=== PATIENT | female | born 1960 | race Caucasian/White ===

== ENCOUNTER 2017-03-10 19:55 | Emergency (ER) | payer MEDICAID ==
--- NOTE | 2017-03-10 20:17 | Emergency Department Record ---
History of Present Illness - General Chief complaint: ENT Stated complaint: SORE THROAT Time Seen by Provider: 03/10/17 20:12 Source: Patient, Family Mode of Arrival: Ambulatory Limitations: No limitations - History of Present Illness Initial comments: 56 yo female has noted a changes in her sense of taste and then discomfort of the tongue and back of the throat. She looked in the mirror and noted a small amount of whitish covering in the back of the throat. No fever. NO swollen glands. She did have her tonsils removed as a child. No other symptoms. PCP is Dr Peña. No diabetes or steroid use. MD complaint: Sore throat Onset/Timin -: Week(s) Location: Throat Severity: Mild Quality: Other Consistency: Getting worse Improves with: None Worsens with: None - Related Data Home Medications Medication Instructions Recorded Confirmed Last Taken Morphine Sulfate [Morphine Sulfate 15 mg PO DAILY 03/10/17 03/10/17 Unknown ER] Previous Rx's Medication Instructions Recorded Simvastatin [Zocor] 40 mg PO QHS #90 tab 10/06/14 Hydrocodone/Acetaminophen [[place] 1 tab PO Q6H PRN #7 tab 11/17/14 5mg/325mg] Nystatin 5 ml PO BID #100 ml 03/10/17 Allergies Allergy/AdvReac Type Severity Reaction Status Date / Time niacin Allergy Mild HIVES Verified 11/17/14 09:54 NSAIDS (Non-Steroidal Allergy Mild VOMITING Verified 11/17/14 09:54 Anti-Inflamma Travel Screening - Travel/Exposure Within Last 30 Days Have you traveled within the last 30 days?: No - Travel/Exposure Within Last Year Have you traveled outside the [place] in the last year?: No - Additonal Travel Details Have you been exposed to anyone with a communicable illness?: No - Travel Symptoms Symptom Screening: None Review of Systems Constitutional: Denies: Chills, Fever, Malaise, Weakness Eyes: Denies: Eye discharge ENT: Reports: Congestion, Throat pain, Other (taste changes, sensitive tongue and throat). Denies: Dental pain, Ear pain, Epistaxis Respiratory: Denies: Cough Cardiovascular: Denies: Syncope Endocrine: Denies: Fatigue Gastrointestinal: Denies: Abdominal pain, Diarrhea, Nausea, Vomiting Genitourinary: Reports: Incontinence. Denies: Dysuria, Urgency Musculoskeletal: Denies: Arthralgia, Back pain, Myalgia Skin: Denies: Bruising, Change in color, Rash Neurological: Denies: Headache, Numbness, Tremors, Vertigo, Weakness Psychiatric: Denies: Anxiety Hematological/Lymphatic: Denies: Blood Clots, Easy bleeding, Easy bruising, Swollen glands Past Medical History - SOCIAL HISTORY Smoking Status: Current every day smoker Alcohol Use: None Drug Use: None - RESPIRATORY Hx Respiratory Disorders: No - CARDIOVASCULAR Hx Cardio Disorders: Yes Hx Hypertension: Yes - NEURO Hx Neuro Disorders: No - GI Hx GI Disorders: No - Hx Genitourinary Disorders: No - ENDOCRINE Hx Endocrine Disorders: Yes Comment:: hypoglycemia - MUSCULOSKELETAL Hx Musculoskeletal Disorders: Yes Hx Arthritis: Yes Hx Back Injury: Yes - PSYCH Hx Psych Problems: No - HEMATOLOGY/ONCOLOGY Hx Hematology/Oncology Disorders: No Family Medical History Any Significant Family History?: No Hx Diabetes: Mother, Brother/Sister Hx Heart Disease: Father Physical Exam - General General Appearance: Alert, Oriented x3, Cooperative, No acute distress Limitations: No limitations - Head Head exam: Atraumatic, Normocephalic, Normal inspection - Eye Eye exam: Normal appearance. negative: Conjunctival injection, Periorbital swelling, Scleral icterus - ENT ENT exam: Mucous membranes moist, TM's normal bilaterally. negative: Mucous membranes dry, Normal orophraynx Ear exam: Normal external inspection Nasal Exam: Normal inspection Mouth exam: Tongue normal. negative: Drooling, Laceration, Muffled voice, Tongue elevation Teeth exam: Normal inspection. negative: Dental caries Throat exam: Other (slight poterior pharynx erythema, slight whitish covering in the left posterior tonsillar fossa). negative: Normal inspection, Tonsillar erythema, Tonsillomegaly, Tonsillar exudate, R peritonsillar mass, L peritonsillar mass - Neck Neck exam: Normal inspection, Full ROM. negative: Lymphadenopathy, Tenderness - Respiratory Respiratory exam: Normal lung sounds bilaterally. negative: Respiratory distress - Cardiovascular Cardiovascular Exam: Regular rate, Normal rhythm, Normal heart sounds - GI/Abdominal GI/Abdominal exam: Soft. negative: Tenderness - Rectal Rectal exam: Deferred - exam: Deferred - Extremities Extremities exam: Normal inspection - Neurological Neurological exam: Alert, Oriented X3 - Psychiatric Psychiatric exam: Normal affect, Normal mood - Skin Skin exam: Dry, Intact, Normal color, Warm Course Vital Signs 03/10/17 20:01 Temperature 98.7 F Pulse Rate [ 105 H Pulse Ox Probe] Respiratory 20 Rate Blood Pressure 133/97 [Left Arm] Pulse Ox 97 - Reevaluation(s) Reevaluation #1: 03/10/17 20:27 Strep is negative Disposition Disposition: Discharge Clinical Impression: Glossodynia Disposition: Home, Self-Care Condition: (1) Good Instructions: Oral Candidiasis (ED) Additional Instructions: Call your doctor to be seen this week in follow up of your symptoms Return if worse, fever, swelling, vomiting or concerns Use the Nystatin twice daily Prescriptions: Nystatin 5 ml PO BID #100 ml Forms: Patient Portal Access Time of Disposition: 20:17 Quality - Quality Measures Quality Measures: N/A - Blood Pressure Screening Does Patient Have Any of the Following: No Blood Pressure Classification: Hypertensive Reading Systolic Measurement: 133 Diastolic Measurement: 97 Screening for High Blood Pressure: < Pre-Hypertensive BP, F/U Documented > [ [id number]] Pre-Hypertensive Follow-up Interventions: Referral to alternative/primary care provider.
== END 2017-03-10 20:38 | disposition home or self-care (01) ==
LOC: ER 19:55
DX: K14.6 Glossodynia (principal); F17.210 Nicotine dependence, cigarettes, uncomplicated
CPT/HCPCS: 87880; 99282